=== PATIENT | female | born 1990 | race Caucasian/White ===

== ENCOUNTER 2018-02-07 12:54 | Emergency (ER) | payer BC ==
[~2018-02-07] VITALS: Ht 167.6 cm; Wt 65.8 kg
[~2018-02-07 12:54] MED LIST: ALPR1TAB2 PO; ASPI-621 PO; BUPR150T15 PO; BUPROPRION; BUTA1CAP29 PO; CETI10TA16 PO; DULO30CA2 PO; KETO10TA PO; KETO30VI27 IM; NORE1TAB39 PO; NORT25CA PO; PROC10TA2 PO; PROM25TA10 PO; SUMA100T3 PO; TOPI200T25 PO; [UNRECOGNIZED DRUG - CODE] PO
[2018-02-07] MEDS ORDERED: DEXAMETHASONE SOD PHOS 10 MG/ML VIAL IV ONE (13:45)
[2018-02-07] MEDS ORDERED: METOCLOPRAMIDE HCL 10 MG/2 ML VIAL. IV ONE (13:45)
[2018-02-07] MEDS ORDERED: diphenhydrAMINE 50 MG/ML VIAL IVP ONE (13:45)
--- NOTE | 2018-02-07 14:23 | PHYS DOC ---
Past History Past Medical History: No Pertinent History Past Surgical History: Cancer Surgery Smoking: Cigarettes, Greater than 1 pack/day Alcohol Use: Rarely Drug Use: None Adult General Chief Complaint Chief Complaint: HEADACHE HPI HPI Patient is a 27-year-old female who presents with complaint of severe headache. Patient does report that she has chronic headaches associated with previous surgery for acoustic neuroma. Patient had that surgery back in September 2012. She had recurrence of the mass and recently had radiation treatment on 01/20. She states that since that time her headaches have been fairly manageable taking hydrocodone every 6-8 hours. She states that today the headache has not been managed and she rates it currently at a 9 out of 10. She states that last night she had symptoms of dizziness and short period where she saw spots. She states that those symptoms lasted about 2 hours. Currently she denies any dizziness. She describes her headache is throbbing in nature as well as feeling like her ear is burning. Patient also indicates that she has had a productive cough for about 2 weeks now. She denies any fever. She states her sputum has been yellow in color. She indicates that the coughing has been worsening her headache. Review of Systems Review of Systems Constitutional: Denies fever or chills [] Eyes: Denies change in visual acuity, redness, or eye pain [] HENT: Denies nasal congestion or sore throat [] Respiratory: Denies cough or shortness of breath [] GI: Denies abdominal pain, nausea, vomiting [] Neurologic: Complains of headache[] All other systems were reviewed and found to be within normal limits, except as documented in this note. Current Medications Current Medications Current Medications Medications (Trade) Dose Ordered Sig/Danielle Start Time Stop Time Status Last Admin Dose Admin Dexamethasone Sodium Phosphate (Decadron) 10 mg 1X ONCE 02/07/18 13:45 02/07/18 13:46 DC 02/07/18 14:08 10 MG Diphenhydramine HCl (Benadryl) 25 mg 1X ONCE 02/07/18 13:45 02/07/18 13:46 DC 02/07/18 14:09 25 MG Fentanyl Citrate (Fentanyl 2ml Vial) 50 mcg 1X ONCE 02/07/18 13:45 02/07/18 13:46 DC 02/07/18 14:10 50 MCG Metoclopramide HCl (Reglan Vial) 10 mg 1X ONCE 02/07/18 13:45 02/07/18 13:46 DC 02/07/18 14:08 10 MG Allergies Allergies Allergies Coded Allergies Type Severity Reaction Last Updated Verified No Known Drug Allergies 12/25/13 No Physical Exam Physical Exam Constitutional: Well developed, well nourished, in mild distress. [] HENT: Normocephalic, atraumatic, bilateral external ears normal, oropharynx moist, no oral exudates, nose normal. [] Eyes: PERRLA, EOMI, conjunctiva normal, no discharge. [] Neck: Normal range of motion, no tenderness, supple, no stridor. [] Cardiovascular:Heart rate regular rhythm [] Lungs & Thorax: Bilateral breath sounds clear to auscultation [] Abdomen: Bowel sounds normal, soft. [] Skin: Warm, dry, no erythema, no rash. [] Neurologic: Alert and oriented X 3, normal motor function, normal sensory function, no focal deficits noted. [] Current Patient Data Vital Signs Vital Signs Date Time Temp Pulse Resp B/P (MAP) Pulse Ox O2 Delivery O2 Flow Rate FiO2 02/07/18 14:10 14 98 Room Air 02/07/18 13:14 98.4 110 EKG EKG [] Radiology/Procedures Radiology/Procedures [] Impressions: CT scan of the head demonstrates no acute intracranial abnormalities. Course & Med Decision Making Course & Med Decision Making Pertinent Labs and Imaging studies reviewed. (See chart for details) [] Dragon Disclaimer Dragon Disclaimer This electronic medical record was generated, in whole or in part, using a voice recognition dictation system. Departure Departure: Impression: Primary Impression: Headache Additional Impression: Acute bronchitis Disposition: 01 HOME, SELF-CARE Condition: STABLE Referrals: LUZ CACERES MD (PCP) Patient Instructions: Acute Bronchitis, Migraine Headache Problem Qualifiers Primary Impression: Headache Headache type: unspecified Headache chronicity pattern: unspecified pattern Intractability: not intractable Qualified Codes: R51 - Headache Additional Impression: Acute bronchitis Bronchitis organism: unspecified organism Qualified Codes: J20.9 - Acute bronchitis, unspecified ROSLYN SALINAS Jr. DO Feb 07, 2018 14:23
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
--- NOTE | 2018-02-07 14:31 | RAD ---
PQRS Compliance statement: One or more of the following individualized dose reduction techniques were utilized for this examination: 1. Automated exposure control. 2. Adjustment of the mA and/or kV according to patient size. 3. Use of iterative reconstruction technique. Indication:headache/dizziness since Jan 20, 2018. 2013 pt. had a brain tumor removed, Dec 2017, pt started Radiation for recurrence brain tumor, pt shielded TECHNIQUE: CT head without IV contrast COMPARISON:10/06/2015 FINDINGS: No pathologic extra-axial or intra-axial fluid collection. The ventricles and basal cisterns are within normal limits. No acute intracranial bleed. No focal loss of logan-white differentiation. No suspicious calvarial lesion. Visualized paranasal sinuses and mastoid air cells are clear. Status post left mastoidectomy. Orbits within normal limits. IMPRESSION: No acute intracranial process. If concern for acute ischemic stroke is high, please consider MRI brain. Electronically signed by: Wilberto Cervantes DO (02/07/2018 2:28 PM) [facility] [place]
[2018-02-07 15:17] VITALS: BP 115/64
== END 2018-02-07 15:47 | disposition home or self-care (01) ==
LOC: ER 12:54
DX: J20.8 Acute bronchitis due to other specified organisms (principal); R51 Headache; F17.210 Nicotine dependence, cigarettes, uncomplicated
CPT/HCPCS: 70450; 71046; 96374; 96375; 96376; 99284; J1100; J1200; J2765; J3010

== ENCOUNTER 2018-10-12 10:31 | Emergency (ER) | payer BC ==
[~2018-10-12] VITALS: Ht 160 cm; Wt 77.1 kg
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
[2018-10-12] MEDS ORDERED: diphenhydrAMINE 50 MG/ML VIAL IVP ONE (11:10)
[2018-10-12] MEDS ORDERED: KETOROLAC 15 MG/ML VIAL. IV ONE (11:10)
[2018-10-12] MEDS ORDERED: METOCLOPRAMIDE HCL 10 MG/2 ML VIAL. IV ONE (11:10)
[2018-10-12] MEDS ORDERED: IV NORMAL SALINE 1,000ML 1,000 ML IV ONE (11:15)
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
[2018-10-12 11:42] VITALS: BP 118/69
[2018-10-12] MEDS ORDERED: METO10TA81 PO (12:07)
== END 2018-10-12 12:08 | disposition home or self-care (01) ==
LOC: ER 10:31
DX: R51 Headache (principal); R42 Dizziness and giddiness; R11.0 Nausea; G43.909 Migraine, unspecified, not intractable, without status migrainosus; F17.210 Nicotine dependence, cigarettes, uncomplicated
CPT/HCPCS: 70450; 81025; 96361; 96374; 96375; 99284; J1200; J1885; J2765; J7030